=== PATIENT | female | born 1965 | race Caucasian/White ===

== ENCOUNTER 2018-01-14 10:01 | Day surgery (SDC) | payer SELFPAY ==
[~2018-01-14 10:01] MED LIST: CHONDR SU A NA/HYALUR INTRAOC KIT (SURGICARE) ONE; EPINEPHRINE INJ/PF 1 MG/1 ML AMPULE ONE; KETOROLAC TROMETHAMINE 0.45% 4 DROP/0.4 ML DROPERETTE OD PRN; LIDOCAINE 1%/PHENYLEPHRINE 1.5% 1 ML VIAL ONE
[2018-01-14] MEDS: TROPICAMIDE 1% OPH SOLN 3 ML OD PRN ×3 (10:35→10:53)
[2018-01-14] MEDS: CYCLOPENTOLATE 0.2%/PHENYLEPHRINE 1% OPH SOLN 2 ML OD PRN ×3 (10:35→10:52)
[2018-01-14] MEDS: BESIFLOXACIN HCL 0.6% OPH SUSP 5 ML BOTTLE OD PRN ×3 (10:36→11:48)
[2018-01-14] MEDS: TETRACAINE HCL 0.5% OPH SOLN 4 ML OD PRN ×3 (10:36→10:58)
[2018-01-14] MEDS ORDERED: MIDAZOLAM 2 MG/2 ML INJ ONE (10:54)
[2018-01-14] MEDS ORDERED: PROPOFOL INJ 200 MG/20 ML VIAL IV ONE (11:27)
[2018-01-14] MEDS ORDERED: TRYPAN BLUE 0.06 % OPH SOLN 0.5 ML DISP.SYRIN ONE (11:27)
[2018-01-14] MEDS ORDERED: CHONDR SU A NA/HYALUR SOD 0.5 ML DISP.SYRIN ONE (11:34)
[2018-01-14] MEDS ORDERED: LIDOCAINE 2% INJ-PF (20 MG/ML) 10 ML AMPUL ONE (15:38)
[2018-01-14] MEDS ORDERED: HYALURONIDASE INJ 150 UNIT/1 ML VIAL ONE (15:39)
[2018-01-14] MEDS ORDERED: BUPIVACAINE HCL 0.75% INJ/PF (7.5 MG/1 ML) 10 ML SDV ONE (15:39)
--- NOTE | 2018-01-14 16:26 | [facility] OPERATIVE REPORT E ---
deleted inaccurate op note so not signed off on and redictated. DICTATING PHYSICIAN: HEATHER AZUL M.D. [id number] PHY#: [id number] ID: [id number] JOB#: [id number] ACCT: [id number] cc:HEATHER AZUL M.D. > [facility]
--- NOTE | 2018-01-14 16:31 | [facility] DISCHARGE SUMMARY E ---
deleted discharge summary not signed off on redictated MTDD
--- NOTE | 2018-01-14 16:51 | [facility] DISCHARGE SUMMARY E ---
[facility] Discharge Summary NAME: ADEOLA REYES AGE: 52Y ADMITTED: 01/14/2018 DISCHARGED: 01/14/2018 FINAL DIAGNOSIS: MATURE CATARACT, RIGHT EYE, REQUIRING TRYPAN BLUE DYE DUE TO POOR RED REFLEX. HISTORY/CLINIC COURSE: This is a 52-year-old female who underwent complex cataract extraction of the right eye. Patient underwent surgery because she was having difficulty seeing facial features. Patient is to be on a regular diet. No bending at the waist, no heavy lifting. TobraDex ointment was placed in the eye and a pressure patch. I will see the patient for same-day postoperative appointment later this afternoon. DICTATING PHYSICIAN: HEATHER AZUL M.D. [id number] PHY#: [id number] ID: [id number] JOB#: [id number] ACCT: [id number] cc:HEATHER AZUL M.D. >
--- NOTE | 2018-01-14 16:52 | [facility] OPERATIVE REPORT E ---
[facility] Operative Report NAME: ADEOLA REYES AGE: 52Y DATE OF SURGERY: 01/14/2018 ROOM: PREOPERATIVE DIAGNOSES: MATURE CATARACT RIGHT EYE. POSTOPERATIVE DIAGNOSES: MATURE CATARACT RIGHT EYE. OPERATION: Complex cataract extraction with the use of a Trypan blue dye due to poor red reflex. SURGEON: HEATHER AZUL M.D. ANESTHESIA: TOPICAL plus retrobulbar block of 2% lidocaine with 0.75% Marcaine and 75 units of vitreous. COMPLICATIONS: None. ESTIMATED BLOOD LOSS: None. PROCEDURE: After obtaining appropriate consent, the patient right eye was prepped and draped in sterile fashion as well as the surgeon in a sterile manner, and the cataract surgery was started. First, the paracentesis blade was used to make a small side-port incision. Viscoelastic was used to inflate the anterior chamber. Next a 2.4 mm incision was made using a 2.4 mm keratome. At this point, the pupil was less than 4.5 mm and was very miotic. In order to complete the capsulorhexis, a Malyugin ring was inserted and found to be in excellent position to help stabilize the pupil. Following this, a continuous capsulorhexis was made using a cystitome and Utrata forceps. Following this, hydrodissection was carried out to make the lens fully loose and mobile, and it was rotated 90 degrees. Following this, a divide and conquer technique was used to phacoemulsify the lens with a CDE of approximately 28.51. The remaining cortex was removed with irrigation/aspiration. Provisc was instilled into the capsular bag to inflate the bag. A SN60WF lens of 21.5 diopters was placed. The remaining viscoelastic material was removed with irrigation/aspiration. After this the Malyugin ring was removed. Following this, the incision was found to be watertight. Besivance was instilled into the eye and a protective shield was placed over the eye. The patient returned to the postoperative recovery in stable condition. This was a complex case due to the fact that the Malyugin ring was used due to poor pupillary dilation of less than or equal to 4 mm. Due to maturity of the lens a retrobulbar block was performed as well as staining of the anterior capsule with Trypan blue dye due to poor red reflex. DICTATING PHYSICIAN: HEATHER AZUL M.D. [id number] PHY#: [id number] ID: [id number] JOB#: [id number] ACCT: [id number] cc:HEATHER AZUL M.D. >
== END 2018-01-14 12:30 | disposition home or self-care (01) ==
LOC: SC 10:01
PROVIDERS: ATTEND Internal Medicine
DX: H25.89 Other age-related cataract (principal); H43.392 Other vitreous opacities, left eye; E11.9 Type 2 diabetes mellitus without complications; Z96.1 Presence of intraocular lens; H26.492 Other secondary cataract, left eye; E05.90 Thyrotoxicosis, unspecified without thyrotoxic crisis or storm; I10 Essential (primary) hypertension; M19.90 Unspecified osteoarthritis, unspecified site; E66.9 Obesity, unspecified; Z68.42 Body mass index [BMI] 45.0-49.9, adult; F17.210 Nicotine dependence, cigarettes, uncomplicated; Z79.899 Other long term (current) drug therapy; Z79.84 Long term (current) use of oral hypoglycemic drugs
CPT/HCPCS: 66982; 82962; V2632; J2250; J3490 ×6; J0171; J2704; J3470; J2370